=== PATIENT | female | born 1975 | race Caucasian/White ===

== ENCOUNTER 2021-06-23 04:35 | Emergency (ER) | payer BC ==
[2021-06-23] MEDS ORDERED: Sodium Chloride 0.9% 10 ML Syringe FLUSH PRN (04:46)
[2021-06-23 05:37] LABS: CHLORIDE,CL 103 mmol/L (98-107); SODIUM,NA 139 mmol/L (136-145)
[2021-06-23 05:41] LABS: PTT,PARTIAL THROMBOPLSTIN TIME 25.4 SEC (25.6-32.8)
[2021-06-23 05:43] LABS: ANION GAP 11.5 mmol/L (5-15)
--- NOTE | 2021-06-23 06:21 | EDM.PDOC ---
ED HPI GENERAL MEDICAL PROBLEM - General Chief Complaint: Genitourinary Problem Stated Complaint: vaginal bleeding post hysterectomy Time Seen by Provider: 06/23/21 04:40 Source of Information: Reports: Patient History Limitations: Reports: No Limitations - History of Present Illness INITIAL COMMENTS - FREE TEXT/NARRATIVE: Patient comes emergency department today from home with concerns of vaginal bleeding. This patient had a laparoscopic-assisted vaginal hysterectomy proximately 8 days prior to arrival to the emergency department. She has had a rather unremarkable post op progress. During the middle the night she got up and went to the bathroom had a large amount of vaginal bleeding and some clots. She contacted her surgery center and told her to come to the emergency department in [place] for evaluation. She came to the emergency department in [place]. Upon arrival she reports that the bleeding has much improved and almost stopped. She has no abdominal cramping. No nausea no vomiting. No weakness dizziness lightheadedness. No chest pain no shortness of breath. No cough or congestion. No syncope. She has no pelvic cramping other than some discomfort which is been so she had her procedure. Lower Abdomen Pain Score (Numeric/FACES): 1 Past Medical History - Infectious Disease History Infectious Disease History: Reports: Novel Coronavirus Social & Family History - Tobacco Use Tobacco Use Status *Q: Never Tobacco User - Recreational Drug Use Recreational Drug Use: No ED ROS GENERAL - Review of Systems Review Of Systems: Comprehensive ROS is negative, except as noted in HPI. ED EXAM, GI/ABD - Physical Exam Exam: See Below Exam Limited By: No Limitations General Appearance: Alert, WD/WN, No Apparent Distress Ears: Normal External Exam Nose: Normal Inspection Throat/Mouth: Normal Inspection Head: Atraumatic, Normocephalic Neck: Normal Inspection, Supple, Non-Tender Respiratory/Chest: No Respiratory Distress, Lungs Clear, Chest Non-Tender Cardiovascular: Normal Peripheral Pulses, Regular Rate, Rhythm GI/Abdominal Exam: Normal Bowel Sounds, Soft, Non-Tender, No Distention, Pelvis Stable, Other (Her incision whittaker on her abdomen are well-healed noninfectious appearing.) (Female) Exam: Deferred Rectal (Female) Exam: Deferred Back Exam: Normal Inspection, Full Range of Motion Extremities: Normal Inspection, Normal Range of Motion, Normal Capillary Refill Neurological: Alert, Oriented, Normal Cognition, No Motor/Sensory Deficits Psychiatric: Normal Affect, Normal Mood Skin Exam: Warm, Dry, Intact, Normal Color, No Rash Lymphatic: No Adenopathy Course - Vital Signs Last Recorded V/S: Last Vital Signs Temp 97.3 F 06/23/21 04:35 Pulse 98 06/23/21 04:35 Resp 18 06/23/21 04:35 BP 110/70 06/23/21 05:49 Pulse Ox 99 06/23/21 04:35 - Orders/Labs/Meds Labs: Laboratory Tests 06/23/21 06/23/21 06/23/21 Range/Units 04:50 04:50 04:50 WBC 9.0 (4.0-10.0) x10^3/uL RBC 4.42 (4.00-5.50) x10^6/uL Hgb 12.5 (12.0-16.0) g/dL Hct 37.1 (33.0-47.0) % MCV 83.9 (78.0-93.0) fL MCH 28.3 (26.0-32.0) pg MCHC 33.7 (32.0-36.0) g/dL RDW Coeff of Alberto 13.4 (10.0-15.0) % Plt Count 340 (130-400) x10^3/uL Immature Gran % (Auto) 0.10 (0.00-0.43) % Neut % (Auto) 70.6 (50.0-80.0) % Lymph % (Auto) 19.4 L (25.0-50.0) % Granite % (Auto) 7.5 (2.0-11.0) % Eos % (Auto) 1.6 (0.0-4.0) % Baso % (Auto) 0.8 (0.2-1.2) % Neut # (Auto) 6.4 (1.8-7.7) x10^3/uL Lymph # (Auto) 1.8 (1.0-4.8) x10^3/uL Granite # (Auto) 0.7 (0.0-0.8) x10^3/uL Eos # (Auto) 0.1 (0.0-0.5) x10^3/uL Baso # (Auto) 0.1 (0.0-0.2) x10^3/uL Immature Gran # (Auto) 0.01 (0.00-0.07) x10^3/uL PT (9.9-12.5) SEC INR (2.0-3.5) APTT (25.6-32.8) SEC Sodium 139 (136-145) mmol/L Potassium 3.5 (3.5-5.1) mmol/L Chloride 103 (98-107) mmol/L Carbon Dioxide 28 (21-32) mmol/L Anion Gap 11.5 (5-15) mmol/L BUN 12 (7-18) mg/dL Creatinine 0.8 (0.55-1.02) mg/dL Est Cr Clr Drug Dosing 80.75 mL/min Estimated GFR (MDRD) > 60 Glucose 109 H (70-99) mg/dL Lactic Acid 1.1 (0.4-2.0) mmol/L Calcium 9.3 (8.5-10.1) mg/dL Corrected Calcium 9.5 (8.5-10.1) mg/dL Total Bilirubin 0.3 (0.2-1.0) mg/dL AST 18 (15-37) U/L ALT 14 (14-59) U/L Alkaline Phosphatase 56 (46-116) U/L Total Protein 7.4 (6.4-8.2) g/dL Albumin 3.8 (3.4-5.0) g/dL Globulin 3.6 Albumin/Globulin Ratio 1.06 06/23/21 Range/Units 05:14 WBC (4.0-10.0) x10^3/uL RBC (4.00-5.50) x10^6/uL Hgb (12.0-16.0) g/dL Hct (33.0-47.0) % MCV (78.0-93.0) fL MCH (26.0-32.0) pg MCHC (32.0-36.0) g/dL RDW Coeff of Alberto (10.0-15.0) % Plt Count (130-400) x10^3/uL Immature Gran % (Auto) (0.00-0.43) % Neut % (Auto) (50.0-80.0) % Lymph % (Auto) (25.0-50.0) % Granite % (Auto) (2.0-11.0) % Eos % (Auto) (0.0-4.0) % Baso % (Auto) (0.2-1.2) % Neut # (Auto) (1.8-7.7) x10^3/uL Lymph # (Auto) (1.0-4.8) x10^3/uL Granite # (Auto) (0.0-0.8) x10^3/uL Eos # (Auto) (0.0-0.5) x10^3/uL Baso # (Auto) (0.0-0.2) x10^3/uL Immature Gran # (Auto) (0.00-0.07) x10^3/uL PT 10.3 (9.9-12.5) SEC INR 0.9 L (2.0-3.5) APTT 25.4 L (25.6-32.8) SEC Sodium (136-145) mmol/L Potassium (3.5-5.1) mmol/L Chloride (98-107) mmol/L Carbon Dioxide (21-32) mmol/L Anion Gap (5-15) mmol/L BUN (7-18) mg/dL Creatinine (0.55-1.02) mg/dL Est Cr Clr Drug Dosing mL/min Estimated GFR (MDRD) Glucose (70-99) mg/dL Lactic Acid (0.4-2.0) mmol/L Calcium (8.5-10.1) mg/dL Corrected Calcium (8.5-10.1) mg/dL Total Bilirubin (0.2-1.0) mg/dL AST (15-37) U/L ALT (14-59) U/L Alkaline Phosphatase (46-116) U/L Total Protein (6.4-8.2) g/dL Albumin (3.4-5.0) g/dL Globulin Albumin/Globulin Ratio Meds: Medications Discontinued Medications Generic Name Dose Route Start Last Admin Trade Name Freq PRN Reason Stop Dose Admin Sodium Chloride 10 ml 06/23/21 04:46 Sodium Chloride 0.9% 10 Ml Syringe FLUSH ASDIRECTED PRN Keep Vein Open - Re-Assessments/Exams Free Text/Narrative Re-Assessment/Exam: Labs were drawn. She had a hemoglobin of 12.5. Her INR is normal. Her CMP is unremarkable. She was observed in the emergency department for an hour after a new pad was placed. The patient had 1 tiny little drop of blood on her pad following that hour of observation. She has no abd pain discomfort or cramping. I did offer to call the [facility] department at [facility] although the patient declined and felt that she was okay to go home and follow up tomorrow by phone. I feel that this is appropriate at this time as the bleeding has stopped and she was observed and her vitals and labs are okay. I understand that Hgb doesn't drop for quite some time after an acute blood loss she clinically does not show signs of anemia. She is comfortable with this plan. I did call the patient the next morning by phone went right to voice mail a message was left for her to return my call to see how she was doing and no return phone call. Departure - Departure Time of Disposition: 06:18 Disposition: Home, Self-Care 01 Clinical Impression: Postoperative vaginal bleeding - Discharge Information Forms: ED Department Discharge Additional Instructions: Watch for continued bleeding. If you go through more than 2 pads in an hour return to the ED. Contact your surgeon about the bleeding to keep in touch with them. Return to the ED if new or worsening symptoms. Follow up with surgeon team by phone tomorrow. Sepsis Event Note (ED) - Evaluation Sepsis Screening Result: No Definite Risk
== END 2021-06-23 06:25 | disposition home or self-care (01) ==
LOC: VM.ED 04:35
DX: N93.9 Abnormal uterine and vaginal bleeding, unspecified (principal); Z90.710 Acquired absence of both cervix and uterus; Z86.16 Personal history of COVID-19
CPT/HCPCS: 36415; 80053; 83605; 85025; 85610; 85730; 99283; 99284